=== PATIENT | female | born 1950 | race Caucasian/White ===

== ENCOUNTER 2017-08-15 07:03 | Outpatient (CLI) | payer BC | END 2017-08-15 07:04 | disposition home or self-care (01) | LOC: BICMAMMO 07:03 | PROVIDERS: ATTEND Family Medicine | DX: Z12.31 Encounter for screening mammogram for malignant neoplasm of breast (principal); R92.1 Mammographic calcification found on diagnostic imaging of breast; Z80.3 Family history of malignant neoplasm of breast | CPT/HCPCS: 77063; 77067; G0202 ==

== ENCOUNTER 2019-08-19 15:13 | Outpatient (CLI) | payer MEDICARE, BC ==
--- NOTE | 2019-08-19 16:01 | MMO ---
Bilateral MAMMO Bilat Screen [facility]. CLINICAL HISTORY: Patient is 68 years old and is seen for screening. The patient has the following family history of breast cancer: sister, at age 67, malignant (generic). The patient has no personal history of cancer. VIEWS: The views performed were: bilateral craniocaudal with tomosynthesis and bilateral mediolateral oblique with tomosynthesis. FILMS COMPARED: The present examination has been compared to prior imaging studies performed at [facility] on 01/12/2009 and 07/24/2011, and at [facility] on 07/03/2016 and 08/15/2017. This study has been interpreted with the assistance of computer-aided detection. MAMMOGRAM FINDINGS: There are scattered fibroglandular densities. Finding 1: There are stable benign appearing calcifications seen in both breasts. There are no suspicious masses, suspicious calcifications, or new areas of architectural distortion. IMPRESSION: FINDING 1: STABLE CALCIFICATIONS IN BOTH BREASTS ARE BENIGN. FINDING 2: FINDING IN THE LEFT BREAST IS BENIGN. EVIDENCE FOR STABLE LEFT BREAST FAT NECROSIS. A ROUTINE FOLLOW-UP MAMMOGRAM IN 1 YEAR IS RECOMMENDED. THE RESULTS OF THIS EXAM WERE SENT TO THE PATIENT. ACR BI-RADS Category 2 - Benign finding MAMMOGRAPHY NOTE: 1. A negative mammogram report should not delay a biopsy if a dominant of clinically suspicious mass is present. 2. Approximately 10% to 15% of breast cancers are not detected by mammography. 3. Adenosis and dense breasts may obscure an underlying neoplasm. Reported by: DEZ CESPEDES MD Electonically Signed: [id number]
== END 2019-08-19 15:14 | disposition home or self-care (01) ==
LOC: BICMAMMO 15:13
PROVIDERS: ATTEND Family Medicine
DX: Z12.31 Encounter for screening mammogram for malignant neoplasm of breast (principal); Z80.3 Family history of malignant neoplasm of breast; R92.1 Mammographic calcification found on diagnostic imaging of breast
CPT/HCPCS: 77063; 77067

== ENCOUNTER 2020-10-16 13:04 | Inpatient (IN) | payer MEDICARE ==
--- NOTE | 2020-10-16 13:30 | RAD ---
Frontal radiograph chest: 10/16/2020 COMPARISON: None HISTORY: Chest pain with nausea and shortness of breath FINDINGS: No pneumothorax or pleural fluid is seen. There is no focal consolidation or alveolar edema . Heart and mediastinal contours appear grossly unremarkable. IMPRESSION: No acute findings.
[2020-10-16] MEDS ORDERED: Diltiazem 125 MG/25 ML ONE (13:43)
[2020-10-16 14:06] LABS: #Basophils 0.1 thou/uL (0.0-0.2); #Eosinphils 0.2 thou/uL (0.0-0.7); #Lymphocytes 1.9 thou/uL (1.20-3.40); #Monocytes 0.7 thou/uL (0.11-0.59); #Neutrophils 5.4 thou/uL (1.40-6.50); %Basophils 1.4 % (0.0-1.0); %Eosinophils 2.4 % (0.0-10.0); %Lymphocytes 22.9 % (21.0-51.0); %Monocytes 7.9 % (0.0-10.0); %Neutrophils 65.4 % (42.0-75.0); Hemoglobin 14.5 g/dL (12.0-16.0); Mean Corpuscular HGB CONC 34.8 g/dL (32.0-36.0); Mean Corpuscular Hemoglobin 34.3 pg (27.0-31.0); Mean Corpuscular Volume 98.5 fL (78.0-98.0); Mean Platelet Volume 7.5 fL (7.4-10.4); Platelet Count 331 thou/uL (130-400); RBC Distribution Width 11.1 % (11.5-14.5); Red Blood Cell (RBC) Count 4.22 mill/uL (4.20-5.40); White Blood Cell (WBC) Count 8.3 thou/uL (4.8-10.8)
[2020-10-16 14:14] LABS: PTT 29.3 sec (22.9-36.1); Prothrombin Time 13.2 sec (12.0-14.7)
[2020-10-16 14:36] LABS: ALT (SGPT) 16 U/L (8-55); AST (SGOT) 16 U/L (5-34); Albumin 3.9 g/dL (3.4-4.8); Alkaline Phosphatase 67 U/L (40-110); Anion Gap 13 mmol/L (10-20); BUN (Urea Nitrogen) 14 mg/dL (9.8-20.1); Bilirubin, Total 0.6 mg/dL (0.2-1.2); Calc. Creatinine Clearance 0 mL/min (70-130); Calcium 8.5 mg/dL (7.8-10.44); Carbon Dioxide 22 mmol/L (23-31); Chloride 112 mmol/L (98-107); Globulin 2.6 g/dL (2.4-3.5); Glucose 171 mg/dL (80-115); Potassium 4.1 mmol/L (3.5-5.1); Protein, Total 6.5 g/dL (5.8-8.1); Sodium 143 mmol/L (136-145)
[2020-10-16] MEDS ORDERED: Iopamidol-370 76% 500 ML 1 ML ONE (15:06)
--- NOTE | 2020-10-16 15:47 | CT ---
CT ANGIOGRAM THORAX WITH IV CONTRAST AND 3-D RECONSTRUCTIONS CLINICAL INDICATION: Sudden onset of chest pain with exertional shortness of breath. COMPARISON: None FINDINGS: Pulmonary arteries: No filling defects are seen in the pulmonary arteries to suggest a pulmonary embo indira. Aorta: Minimal scattered vascular calcifications. Thoracic aorta is normal in caliber. Lungs: Dependent bibasilar atelectasis. No consolidation, pulmonary nodule, or pleural effusion is se en in the lungs bilaterally. Large airways are patent. Mediastinum: There is deviation of the trachea secondary to a left thyroid lesion/mass measuring 4.5 cm craniocaudal x4.9 cm transverse x3.4 cm AP. No enlarged lymph nodes are seen by CT size criteria. Minimal pericardial effusion is present. Osseous structures: There is fusion of the T6-T8 vertebral bodies. Multilevel degenerative changes ar e seen throughout the spine. There is a mild compression fracture seen involving the L1 vertebral body of indeterminate age. There is also suggestion of slight height loss along the superior endplate of the L2 vertebral body, but the L2 vertebral body is incompletely imaged on this exam. Chest wall: No abnormality visualized. Upper abdomen: There several hypodense lesion seen in the left hepatic lobe and in the dome of the li elena largest measuring 2.9 cm which demonstrate fluid attenuation on this nonenhanced CT exam and are likely related to hepatic cysts. End of the visualized upper abdomen demonstrates a normal CT cheng earance for phase of imaging. IMPRESSION: 1. Left thyroid mass. Ultrasound examination is recommended for further evaluation. 2. No CT evidence of a pulmonary embolus. 3. Hepatic cysts. 4. Minimal pericardial effusion. 5.Indeterminate age compression fracture L1 vertebral body with questionable compression fracture melinda ng the superior plate of L2 vertebral body, but the L2 vertebral bodies incompletely imaged.
[2020-10-16] MEDS ORDERED: Enoxaparin Sodium 80 MG/0.8 ML SYRINGE ONE (15:56)
[2020-10-16] MEDS ORDERED: Metoprolol Tartrate 25 MG TAB ONE (16:28)
[2020-10-16] MEDS ORDERED: Metoprolol Tartrate 5 MG/5 ML VIAL IVP PRN (16:59)
[2020-10-16] MEDS ORDERED: Aspirin 325 MG TAB PO SCH (17:00)
--- NOTE | 2020-10-16 17:04 | PDOC.HHP ---
Hospitalist HPI Chest pain History of Present Illness: Ms. Garzon is a 70-year-old female with past medical history of hypertension who presents to the emergency room for acute onset of chest pain. Patient reports that this morning she was at a store and walking around when she suddenly developed chest pain that she described as a 3 out of 10 substernal. She describes the pain as a pressure and felt as though her heart skipping. She denies any shortness of breath. Denies dizziness lightheadedness numbness weakness. Denies abdominal pain, melena or hematochezia. No history of atrial fibrillation, but does endorse a significant family history of A. fib in her sisters and mother. In emergency room initial vital signs 153/126, heart rate in the 180s, 22, 98.2, 97% on room air. Initial troponin 0.012, EKG showed atrial fibrillation with rapid ventricular rate. Patient initially requiring Cardizem drip to control her heart rate. Improved after 20 mg of IV diltiazem followed by 25 mg of oral metoprolol. Chest x-ray with no acute findings, CT PE protocol done which was negative for PE, but did show a incidental left thyroid mass and small pericardial effusion. WBC 8.3, H/H 14.5/41.5. BUN/CR 14/0.8. Sodium 143, potassium 4.1, glucose 171. BNP 442. Patient converted to normal sinus rhythm a few hours after pacing. She is now rate controlled. Allergies/Adverse Reactions: Allergy/AdvReac Type Severity Reaction Status Date / Time naproxen Allergy Intermediate Verified 10/16/20 17:05 Past History: Past medical history Hypertension Past surgical history None Family history Significant for A. fib, vulvar cancer in mother Social history Denies smoking, alcohol or drug use. Hospitalist HPI ROS Constitutional: denies: fever, chills, sweats, weakness, malaise, other Eyes: denies: pain, vision change, conjunctivae inflammation, eyelid inflammation, redness, other ENT: denies: ear pain, ear discharge, nose pain, nose discharge, nose congestion, mouth pain, mouth swelling, throat pain, throat swelling, other Respiratory: denies: cough, dry, shortness of breath, hemoptysis, SOB with excertion, pleuritic pain, sputum, wheezing, other Cardiovascular: reports: chest pain, palpitations. denies: orthopnea, paroxysmal noc. dyspnea, edema, light headedness, other Gastrointestinal: denies: nausea, vomiting, abdominal pain, diarrhea, constipation, melena, hematochezia, other Genitourinary: denies: dysuria, frequency, incontinence, hematuria, retention, other Musculoskeletal: denies: neck pain, shoulder pain, arm pain, back pain, hand pain, leg pain, foot pain, other Skin: denies: rash, lesions, brittany, bruising, other Neurological: denies: weakness, numbness, incoordination, change in speech, confusion, seizures, other Hospitalist Exam General Appearance: NAD, awake alert Eye: PERRL, anicteric sclera ENT: normocephalic atraumatic, no oropharyngeal lesions, moist mucosa Neck: supple, symmetric, no JVD, no thyromegaly, no lymphadenopathy, no carotid bruit Heart: RRR, no murmur, no gallops, no rubs, normal peripheral pulses Respiratory: CTAB, no wheezes, no rales, no ronchi, normal chest expansion, no tachypnea, normal percussion Gastrointestinal: soft, non-tender, non-distended, normal bowel sounds, no palpable masses, no hepatomegaly, no splenomegaly, no bruit Extremities: no cyanosis, no clubbing, no edema Skin: normal turgor, no lesions, no rashes Neurological: cranial nerve grossly intact, normal sensation to touch, no weakness, no focal deficits, no new deficit Musculoskeletal: normal tone, normal strength, no muscle wasting Psychiatric: normal affect, normal behavior, A&O x 3 Hospitalist Results Result Diagrams: 10/16/20 13:53 10/16/20 13:53 Lab results: Laboratory Last Values WBC 8.3 thou/uL (4.8-10.8) 10/16/20 13:53 RBC 4.22 mill/uL (4.20-5.40) 10/16/20 13:53 Hgb 14.5 g/dL (12.0-16.0) 10/16/20 13:53 Hct 41.5 % (36.0-47.0) 10/16/20 13:53 MCV 98.5 fL (78.0-98.0) H 10/16/20 13:53 MCH 34.3 pg (27.0-31.0) H 10/16/20 13:53 MCHC 34.8 g/dL (32.0-36.0) 10/16/20 13:53 RDW 11.1 % (11.5-14.5) L 10/16/20 13:53 Plt Count 331 thou/uL (130-400) 10/16/20 13:53 MPV 7.5 fL (7.4-10.4) 10/16/20 13:53 Neutrophils % 65.4 % (42.0-75.0) 10/16/20 13:53 Lymphocytes % 22.9 % (21.0-51.0) 10/16/20 13:53 Monocytes % 7.9 % (0.0-10.0) 10/16/20 13:53 Eosinophils % 2.4 % (0.0-10.0) 10/16/20 13:53 Basophils % 1.4 % (0.0-1.0) H 10/16/20 13:53 Neutrophils # 5.4 thou/uL (1.40-6.50) 10/16/20 13:53 Lymphocytes # 1.9 thou/uL (1.20-3.40) 10/16/20 13:53 Monocytes # 0.7 thou/uL (0.11-0.59) H 10/16/20 13:53 Eosinophils # 0.2 thou/uL (0.0-0.7) 10/16/20 13:53 Basophils # 0.1 thou/uL (0.0-0.2) 10/16/20 13:53 PT 13.2 sec (12.0-14.7) 10/16/20 13:54 INR 1.0 10/16/20 13:54 APTT 29.3 sec (22.9-36.1) 10/16/20 13:54 Sodium 143 mmol/L (136-145) 10/16/20 13:53 Potassium 4.1 mmol/L (3.5-5.1) 10/16/20 13:53 Chloride 112 mmol/L (98-107) H 10/16/20 13:53 Carbon Dioxide 22 mmol/L (23-31) L 10/16/20 13:53 Anion Gap 13 mmol/L (10-20) 10/16/20 13:53 BUN 14 mg/dL (9.8-20.1) 10/16/20 13:53 Creatinine 0.80 mg/dL (0.6-1.1) 10/16/20 13:53 Estimated GFR (MDRD) 71 10/16/20 13:53 Glucose 171 mg/dL (80-115) H 10/16/20 13:53 Calcium 8.5 mg/dL (7.8-10.44) 10/16/20 13:53 Magnesium 2.1 mg/dL (1.6-2.6) 10/16/20 13:53 Total Bilirubin 0.6 mg/dL (0.2-1.2) 10/16/20 13:53 AST 16 U/L (5-34) 10/16/20 13:53 ALT 16 U/L (8-55) 10/16/20 13:53 Alkaline Phosphatase 67 U/L (40-110) 10/16/20 13:53 Troponin I 0.012 ng/mL (< 0.028) 10/16/20 13:53 B-Natriuretic Peptide 442.4 pg/mL (0-100) H 10/16/20 13:54 Serum Total Protein 6.5 g/dL (5.8-8.1) 10/16/20 13:53 Albumin 3.9 g/dL (3.4-4.8) 10/16/20 13:53 Globulin 2.6 g/dL (2.4-3.5) 10/16/20 13:53 Albumin/Globulin Ratio 1.5 g/dL (1.2-2.2) 10/16/20 13:53 Hospitalist H&P A/P Plan: Atrial fibrillation 62-year-old female with possible history hypertension presents with acute onset of chest pain and atrial fibrillation. Patient initially with rapid ventricular rate in the 180s requiring diltiazem drip. She has now converted to normal sinus rhythm and is rate controlled. No history of atrial fibrillation, but the patient does report a significant family history of A. fib. Patient did receive 1 mg/kg of Lovenox in the emergency room. We will start metoprolol twice daily, continue anticoagulation and consult cardiology. Plan Anticoagulation with Lovenox TSH, magnesium Telemetry monitoring, echocardiogram Metoprolol 25 mg twice daily Cardiology consult Chest pain Patient with chest pain likely secondary to A. fib. Patient's chest pain is now resolved. Troponin 0.012, EKG with no ischemic changes. Will trend troponin and continue on cardiac monitoring. Plan Aspirin Trend troponin Telemetry monitoring Cardiology consult as above Pericardial Effusion CT scan showed very mild trace pericardial effusion. Patient HD stable. No concern for tamponade. May be 2/2 to a-fib vs mild infectious process. Patient does not appear to be fluid overloaded on exam. No JVD, no bradycardia or m uffled heart sounds. Will obtain echocardiogram and consult cardiology. Plan -Echocardiogram -Telemetry monitoring -Cardiology consult Hypertension Continue home medications once confirmed. Thyroid mass Patient with incidental finding of left thyroid mass on CT scan with recommended ultrasound follow-up. Given patient's new onset of A. fib will check TSH level. Informed patient of incidental finding and need for her to follow-up with her primary care provider as an outpatient for a thyroid ultrasound. Plan Outpatient thyroid ultrasound PCP follow-up DVT prophylaxisLovenox Full code Case discussed with attending physician Dr. Stephens.
[2020-10-16 17:47] LABS: Free T4 (Free Thyroxine) 0.92 ng/dL (0.70-1.48); Thyroid Stimulating Hormone 1.1952 uIU/mL (0.35-4.94)
[2020-10-16 17:51] LABS: Troponin I 0.158 ng/mL (< 0.028)
[2020-10-16 20:23] VITALS: BMI 26.3
[2020-10-16] MEDS: Metoprolol Tartrate 25 MG TAB PO SCH (21:05)
[2020-10-16] MEDS ORDERED: Enoxaparin Sodium 80 MG/0.8 ML SYRINGE SC SCH (23:59)
[2020-10-17 05:01] LABS: #Basophils 0.1 thou/uL (0.0-0.2); #Eosinphils 0.3 thou/uL (0.0-0.7); #Lymphocytes 2.5 thou/uL (1.20-3.40); #Monocytes 0.7 thou/uL (0.11-0.59); #Neutrophils 4.3 thou/uL (1.40-6.50); %Basophils 0.8 % (0.0-1.0); %Eosinophils 3.6 % (0.0-10.0); %Lymphocytes 31.9 % (21.0-51.0); %Monocytes 8.6 % (0.0-10.0); %Neutrophils 55.1 % (42.0-75.0); Mean Corpuscular HGB CONC 33.7 g/dL (32.0-36.0); Mean Corpuscular Hemoglobin 33.1 pg (27.0-31.0); Mean Corpuscular Volume 98.2 fL (78.0-98.0); Mean Platelet Volume 7.1 fL (7.4-10.4); Platelet Count 307 thou/uL (130-400); RBC Distribution Width 11.2 % (11.5-14.5); Red Blood Cell (RBC) Count 3.93 mill/uL (4.20-5.40); White Blood Cell (WBC) Count 7.8 thou/uL (4.8-10.8)
[2020-10-17 05:24] LABS: Anion Gap 10 mmol/L (10-20); BUN (Urea Nitrogen) 11 mg/dL (9.8-20.1); Calc. Creatinine Clearance 84 mL/min (70-130); Calcium 8.4 mg/dL (7.8-10.44); Carbon Dioxide 28 mmol/L (23-31); Cardiac Risk 4.1 (Less than 4.5); Chloride 107 mmol/L (98-107); Cholesterol 163 mg/dl (< 200 Desired); Glucose 97 mg/dL (80-115); HDL Cholesterol 40 mg/dL (>60 Neg Risk); LDL Cholesterol, Calculated 104 mg/dL; Potassium 4.1 mmol/L (3.5-5.1); Sodium 141 mmol/L (136-145); Triglycerides 95 mg/dL (Less than 150)
[2020-10-17 05:28] LABS: Troponin I 0.144 ng/mL (< 0.028)
[2020-10-17] MEDS ORDERED: Loperamide HCl 2 MG CAP PO PRN (07:46)
[2020-10-17] MEDS ORDERED: HYDROcodone/Acetaminophen 5/325 mg Tablet PO PRN (07:46)
[2020-10-17] MEDS ORDERED: Zolpidem Tartrate 5 MG TAB PO PRN (07:46)
[2020-10-17] MEDS ORDERED: Loratadine 10 MG TAB PO PRN (07:46)
[2020-10-17] MEDS ORDERED: Ondansetron ODT 4 MG TAB PO PRN (07:46)
[2020-10-17] MEDS ORDERED: hydrALAZINE 20 MG/ML VIAL SLOW IVP PRN (07:46)
[2020-10-17] MEDS ORDERED: GUAIFENESIN SF SOLN 200 MG/10 ML UDCUP PO PRN (07:46)
[2020-10-17] MEDS ORDERED: Sodium Chloride 0.65% Nasal 44 ML BOT EA NARE PRN (07:46)
[2020-10-17] MEDS ORDERED: Bisacodyl 5 MG TAB PO PRN (07:46)
[2020-10-17] MEDS ORDERED: Ondansetron PF 4 MG/2 ML Vial IVP PRN (07:46)
[2020-10-17] MEDS ORDERED: Cepastat Lozenges 1 LOZ PO PRN (07:46)
[2020-10-17] MEDS ORDERED: Senokot S 8.6-50 MG TAB PO PRN (07:46)
[2020-10-17 08:08] LABS: SARS-CoV-2 PCR by NAA Not Detected (NotDetected)
[2020-10-17] MEDS ORDERED: Calcium Carbonate 500 MG TAB PO SCH (09:00)
[2020-10-17] MEDS ORDERED: Ascorbic Acid 500 mg Chewable Tablet PO SCH (09:00)
[2020-10-17] MEDS ORDERED: Multivit, Therapeutic 1 TAB PO SCH (09:00)
[2020-10-17] MEDS ORDERED: Non-Formulary Item 1 EACH (Ascorbic Acid [Vitamin C] 1,000 MG Tablet) PO SCH (09:00)
[2020-10-17] MEDS ORDERED: Enoxaparin Sodium 80 MG/0.8 ML SYRINGE SC SCH (09:00)
[2020-10-17] MEDS ORDERED: Aspirin Chewable 81 MG TAB PO SCH (09:00)
[2020-10-17] MEDS ORDERED: Non-Formulary Item 1 EACH (Multivitamin [Multivitamin] 1 EACH Tablet) PO SCH (09:00)
[2020-10-17] MEDS ORDERED: Lisinopril 5 MG TAB PO SCH (09:00)
[2020-10-17] MEDS ORDERED: Iopamidol 370 76% 100 ML VIAL ONE (09:27)
[2020-10-17] MEDS: Metoprolol Tartrate 25 MG TAB PO SCH ×2 (10:32→20:06)
--- NOTE | 2020-10-17 10:37 | PDOC.HOSPP ---
- Subjective Encounter Date: 10/17/20 Encounter Time: 08:20 Subjective: Patient seen and examined bedside today, patient has no new complaint, no chest pain or shortness of breath, - Objective Vital Signs & Weight: Vital Signs (12 hours) Temp Pulse Resp BP Pulse Ox 10/17/20 08:00 97.7 F 62 17 142/79 H 98 10/17/20 07:32 99.2 F 62 17 142/79 H 98 10/17/20 04:00 66 18 125/73 97 10/17/20 01:00 98.1 F 67 18 124/70 97 Weight Weight 158 lb 3.2 oz Result Diagrams: 10/17/20 04:46 10/17/20 04:46 Radiology Reviewed by me: Yes EKG Reviewed by me: Yes Hospitalist ROS - Review of Systems Constitutional: denies: fever, chills, sweats, weakness, malaise, other ENT: denies: ear pain, ear discharge, nose pain, nose discharge, nose congestion, mouth pain, mouth swelling, throat pain, throat swelling, other Respiratory: denies: cough, dry, shortness of breath, hemoptysis, SOB with excertion, pleuritic pain, sputum, wheezing, other Cardiovascular: denies: chest pain, palpitations, orthopnea, paroxysmal noc. dyspnea, edema, light headedness, other Gastrointestinal: denies: nausea, vomiting, abdominal pain, diarrhea, constipation, melena, hematochezia, other Genitourinary: denies: dysuria, frequency, incontinence, hematuria, retention, other Musculoskeletal: denies: neck pain, shoulder pain, arm pain, back pain, hand pain, leg pain, foot pain, other - Medication Medications: Active Medications Generic Name Dose Route Start Last Admin Trade Name Freq PRN Reason Stop Dose Admin Metoprolol Tartrate 25 mg 10/16/20 21:00 10/16/20 21:05 Metoprolol Tartrate 25 Mg Tab PO 25 mg BID [facility] Hospitalist Exam Vitals: Vital Signs (12 hours) Temp Pulse Resp BP Pulse Ox 10/17/20 08:00 97.7 F 62 17 142/79 H 98 10/17/20 07:32 99.2 F 62 17 142/79 H 98 10/17/20 04:00 66 18 125/73 97 03/02/21 01:00 98.1 F 67 18 124/70 97 Weight Weight 158 lb 3.2 oz General Appearance: NAD, awake alert Eye: PERRL, anicteric sclera ENT: normocephalic atraumatic, no oropharyngeal lesions Neck: supple, symmetric, no JVD, no thyromegaly Heart: no murmur, no gallops, no rubs Respiratory: no wheezes, no rales, no ronchi Gastrointestinal: soft, non-tender, non-distended, normal bowel sounds Extremities: no clubbing, no edema Skin: normal turgor, no lesions Neurological: no focal deficits Musculoskeletal: normal tone, normal strength Psychiatric: normal affect, normal behavior Hosp A/P (1) Atrial fibrillation with RVR Code(s): I48.91 - UNSPECIFIED ATRIAL FIBRILLATION Status: Acute (2) Chest pain Code(s): R07.9 - CHEST PAIN, UNSPECIFIED Status: Acute (3) Type 2 myocardial infarction Code(s): I21.A1 - MYOCARDIAL INFARCTION TYPE 2 Status: Acute (4) Thyroid mass Code(s): E07.9 - DISORDER OF THYROID, UNSPECIFIED Status: Acute (5) Hypertension Code(s): I10 - ESSENTIAL (PRIMARY) HYPERTENSION Status: Chronic Qualifiers: Hypertension type: essential hypertension Qualified Code(s): I10 - Essential (primary) hypertension - Plan old records reviewed/req Echocardiography done and result is pending Cardiology consulted Continue Lovenox, long-term anticoagulation will defer to cardiology Continue metoprolol Further investigation will defer to cardiology We will obtain ultrasound thyroid We will monitor telemetry floor, if remains stable then will consider discharge tomorrow if no further plan for any investigation
[2020-10-17] MEDS ORDERED: Lidocaine 1% (PF) 30 ML VIAL ONE (13:47)
--- NOTE | 2020-10-17 13:55 | ULT ---
THYROID ULTRASOUND: HISTORY: Thyroid mass. CORRELATION: CT angiogram of the chest 10/17/2019. FINDINGS: Thyroid isthmus: 0.22 cm. Right thyroid lobe: 1.2 x 2.8 x 1.2 cm. Left thyroid lobe: 1.9 x 5.5 x 3.8 cm. Thyroid nodules: Right thyroid lobe: Solid heterogeneous nodule in the upper pole of the right thyroid lobe measures 1 .1 x 1.1 x 0.9 cm. Left thyroid lobe: Solid heterogeneous nodule in the upper pole measures 1.0 x 1.0 x 1.1 cm. Solid heterogeneous nodule in the lower pole of the left thyroid lobe measures 4.0 x 4.1 x 3.1 cm. IMPRESSION: Multiple solid nodules in the thyroid gland. TIRADS score TR mildly suspicious. Fine-needle aspirati on of the largest solid mass in the lower pole the left thyroid lobe is recommended. Remaining nodules can be followed up in one year. Transcribed Date/Time: 10/17/2020 2:06 PM
[2020-10-17] MEDS ORDERED: Sodium Chloride 0.9% 1,000 ML IV SCH ×2 (14:00→14:45)
[2020-10-17] MEDS ORDERED: Heparin 10,000 UNITS/ 10 ML VIAL ONE (14:11)
[2020-10-17] MEDS ORDERED: Nitroglycerin 100MG/250ML BOT 250 ML ONE (14:11)
[2020-10-17] MEDS ORDERED: Verapamil 5 MG/2 ML VIAL ONE (14:11)
[2020-10-17] MEDS ORDERED: Midazolam HCl 2 mg/2 ml Vial ONE (14:24)
[2020-10-17] MEDS ORDERED: Fentanyl 100 MCG/2 ML VIAL ONE (14:24)
--- NOTE | 2020-10-17 14:38 | CON ---
DATE OF CONSULTATION: REASON FOR CONSULTATION: Abnormal enzymes and atrial fibrillation. HISTORY OF PRESENT ILLNESS: Ms. Garzon is a pleasant 70-year-old woman with no significant past medical history except for hypertension, who recently presented with chest pain, pressure, and shortness of breath. She states she had a normal state of health [facility] was [facility] [employer]. She developed acute onset shortness of breath and chest pain. She states she felt her pulse that was tachycardic. She presented to the emergency room and was found to be in atrial fibrillation with RVR. She then converted back to sinus rhythm. Her EKG did show deep inverted T waves suggesting ischemia. Troponin was also mildly elevated at 0.158. She is currently pain free. PAST MEDICAL HISTORY: Hypertension. ALLERGIES: NAPROXEN. PAST SURGICAL HISTORY: None. SOCIAL HISTORY: No tobacco or alcohol use. REVIEW OF SYSTEMS: A 10-point review of systems is reviewed and is as above, otherwise negative. PHYSICAL EXAMINATION: GENERAL: Patient is a pleasant woman, who is in no acute distress. The patient appears their stated age. VITAL SIGNS: Blood pressure 141/78, pulse 60, temperature 98.2. NEUROLOGIC: The patient is alert and oriented x3 with no focal neurologic deficits. HEENT: Sclerae without icterus. Mouth has moist mucous membranes with normal pallor. NECK: No JVD. Carotid upstroke brisk. No bruits bilaterally. LUNGS: Clear to auscultation with unlabored respirations. BACK: No scoliosis or kyphosis. CARDIAC: Regular rate and rhythm with normal S1 and S2. No S3 or S4 noted. No significant rubs, murmurs, thrills, or gallops noted throughout the precordium. PMI is not displaced. There is no parasternal heave. ABDOMEN: Soft, nontender, nondistended. No peritoneal signs present. No hepatosplenomegaly. No abnormal striae. EXTREMITIES: 2+ femoral and 2+ dorsalis pedis pulses. No cyanosis, clubbing, or edema. SKIN: No gross abnormalities. PERTINENT LABORATORY DATA: Creatinine 0.73. Peak troponin 0.158. BNP of 442. Thyroid ultrasound suggesting multiple solid nodules in thyroid gland, recommending fine-needle aspiration. IMPRESSION: 1. Acute onset chest pain. 2. Shortness of breath. 3. Atrial fibrillation. 4. Abnormal EKG. RECOMMENDATIONS: Ms. Sullivans EKG does suggest inverted T waves suggesting unstable angina. I am unsure whether she developed chest pain and pressure, then developed atrial fibrillation or vice versa. Her troponin was also mildly elevated. Discussed medical therapy versus coronary angiography. I would recommend coronary angiography given the above. Based on the above, she agreed. I discussed the procedure in full detail with Ms. Garzon. The risks of the procedure were also discussed. The risks of the procedure include but are not limited to the following: , stroke, GA, need for emergency surgery, loss of limb, bleeding, and infection, as well as a reaction to the dye causing kidney failure and needing long-term dialysis. I also discussed the risks of PCI to include all of the above including coronary dissection and perforation in addition to acute stent thrombosis and restenosis. All questions were answered. Given the above, the patient agreed to proceed with above procedure. I also discussed drug-coated versus nondrug-coated stent placement. There were no contraindications. We will proceed if needed. Job ID: [id number]
[2020-10-17] MEDS ORDERED: Sodium Chloride 0.9% 200 ML IV PRN (14:42)
[2020-10-17] MEDS ORDERED: Acetaminophen/Codeine 30-300mg Tablet PO PRN ×2 (14:42)
[2020-10-17] MEDS ORDERED: Nitroglycerin 0.4 MG TAB (25 Tab Bottle) SL PRN (14:42)
[2020-10-17] MEDS ORDERED: Dronedarone HCl 400 MG TAB PO SCH (17:00)
--- NOTE | 2020-10-17 17:04 | PRG ---
DATE OF SERVICE: 10/17/2020 Ms. Garzon underwent coronary angiography. She was not found to have significant coronary artery disease. She was found to have apical hypertrophy both by echo and by catheterization. At this point, would recommend anticoagulation therapy for a recent episode of atrial fibrillation. Also recommend Multaq. We will also recommend a 3-week event recorder to assess for any significant dysrhythmias including ventricular tachycardia. Workup for apical hypertrophy is the same is for hypertrophic cardiomyopathy, although the risk of sudden cardiac is much lower. The patient has no history of syncope, presyncope, and no previous dysrhythmia, and no family history of sudden cardiac . After bed rest, it will be okay from my standpoint to discharge home with close outpatient followup. Job ID: [id number]
--- NOTE | 2020-10-17 17:57 | PDOC.DS.DS ---
Provider Date of Admission: 10/16/20 16:26 Date of Discharge: 10/17/20 Admitting Provider: Serge Stephens MD Consultations: Cardiology Primary Care Physician: Angelo Martinez MD Course Hospital Course: Ms. Garzon is a 70-year-old female with past medical history of hypertension who presents to the emergency room for acute onset of chest pain. Patient reports that this morning she was at a store and walking around when she suddenly developed chest pain that she described as a 3 out of 10 substernal. She describes the pain as a pressure and felt as though her heart skipping. She denies any shortness of breath. Denies dizziness lightheadedness numbness weakness. Denies abdominal pain, melena or hematochezia. No history of atrial fibrillation, but does endorse a significant family history of A. fib in her sisters and mother. In emergency room initial vital signs 153/126, heart rate in the 180s, 22, 98.2, 97% on room air. Initial troponin 0.012, EKG showed atrial fibrillation with ra pid ventricular rate. Patient initially requiring Cardizem drip to control her heart rate. Improved after 20 mg of IV diltiazem followed by 25 mg of oral metoprolol. Chest x-ray with no acute findings, CT PE protocol done which was negative for PE, but did show a incidental left thyroid mass and small pericardial effusion. WBC 8.3, H/H 14.5/41.5. BUN/CR 14/0.8. Sodium 143, potassium 4.1, glucose 171. BNP 442. Patient converted to normal sinus rhythm a few hours after pacing. She is now rate controlled. echo done, showed apical hypertrophy, cardiac cath showed normal coronary, elliquis started and multaq started, pt will follow up with ENT for thyroid mass. she will follow up with cardiology. pt wanted to go home Resuscitation Status: 10/16/20 16:56 Resuscitation Status Routine Co-Sign Provider: Resuscitation Status: FULL: Full Resuscitation Lab Results: 10/17/20 04:46 10/17/20 04:46 Abnormal Lab Results - Last 48 hrs 10/16/20 13:53: Chloride 112 H, Carbon Dioxide 22 L 10/16/20 13:53: MCV 98.5 H, MCH 34.3 H, RDW 11.1 L, Basophils % 1.4 H, Monocytes # 0.7 H 10/16/20 13:54: B-Natriuretic Peptide 442.4 H 10/16/20 16:55: Troponin I 0.158 H 10/17/20 04:46: RBC 3.93 L, MCV 98.2 H, MCH 33.1 H, RDW 11.2 L, MPV 7.1 L, Monocytes # 0.7 H 10/17/20 04:46: Troponin I 0.144 H Vitals: Vital Signs (12 hours) Temp Pulse Resp BP Pulse Ox 10/17/20 15:13 97.6 F 66 18 150/79 H 95 10/17/20 11:29 98.2 F 60 18 141/78 H 94 L 10/17/20 10:31 62 10/17/20 08:00 97.7 F 62 17 142/79 H 98 10/17/20 07:32 99.2 F 62 17 142/79 H 98 Weight Weight 158 lb 3.2 oz Physical Exam: The patient was seen and examined on the day of discharge. General Appearance: NAD, awake alert Eye: PERRL, anicteric sclera ENT: normocephalic atraumatic, no oropharyngeal lesions Neck: supple, symmetric, no JVD Respiratory: CTAB, no wheezes, no rales, no ronchi Cardiovascular: RRR, no murmur, no gallops, normal peripheral pulses Gastrointestinal: soft, non-tender, non-distended, normal bowel sounds Extremities: no cyanosis, no clubbing, no edema Skin: normal turgor, no lesions Neurological: cranial nerve grossly intact Musculoskeletal: normal tone, normal strength PSYCH: normal affect, normal behavior Problem (1) Atrial fibrillation with RVR Code(s): I48.91 - UNSPECIFIED ATRIAL FIBRILLATION Status: Acute (2) Chest pain Code(s): R07.9 - CHEST PAIN, UNSPECIFIED Status: Acute (3) Type 2 myocardial infarction Code(s): I21.A1 - MYOCARDIAL INFARCTION TYPE 2 Status: Acute (4) Thyroid mass Code(s): E07.9 - DISORDER OF THYROID, UNSPECIFIED Status: Acute (5) Hypertension Code(s): I10 - ESSENTIAL (PRIMARY) HYPERTENSION Status: Chronic Qualifiers: Hypertension type: essential hypertension Qualified Code(s): I10 - Essential (primary) hypertension Plan Prescriptions: Apixaban [Eliquis] 5 mg PO BID #30 tab Metoprolol Tartrate [Lopressor] 25 mg PO BID #60 tab Dronedarone HCl [Multaq] 400 mg PO BID-WM #60 tab Home Medications: Medication Instructions Recorded Confirmed Type Ascorbic Acid [Vitamin C] 1,000 mg PO DAILY 10/16/20 10/16/20 History Calcium Carbonate [Calcium] 500 mg PO DAILY 10/16/20 10/16/20 History Cetirizine HCl 5 mg PO DAILY 10/16/20 10/16/20 History Lisinopril 5 mg PO DAILY 10/16/20 10/16/20 History Multivitamin 1 tab PO DAILY 10/16/20 10/16/20 History Apixaban [Eliquis] 5 mg PO BID #30 tab 10/17/20 Rx Dronedarone HCl [Multaq] 400 mg PO BID-WM #60 tab 10/17/20 Rx Metoprolol Tartrate [Lopressor] 25 mg PO BID #60 tab 10/17/20 Rx Allergies: naproxen Allergy (Intermediate, Verified 10/16/20 20:37) low blood pressure Activity:: Activity as Tolerated Nourishment:: Heart Healthy Diet Therapies:: Not Applicable Equipment/Supplies:: Not Applicable IV Therapy:: Not Applicable Referrals: Gautam Santana MD [Active] - Angelo Martinez MD [Primary Care Provider] - Disposition: HOME Quality CORE MEASURES:: N/A
[2020-10-17 21:21] VITALS: BP 159/79; TEMP 98.4
[2020-10-18] MEDS ORDERED: Apixaban 5 MG TAB PO SCH (09:00)
== END 2020-10-17 20:25 | disposition home or self-care (01) | DRG 281 ==
LOC: ERS 13:04 → ERHOLD 16:26 → 2SE 20:19
PROVIDERS: ADMIT Internal Medicine; ATTEND Internal Medicine
PROC: 4A023N7 Measurement of Cardiac Sampling and Pressure, Left Heart, Percutaneous Approach (ICD-10-PCS; principal; 2020-10-17)
PROC: B2111ZZ Fluoroscopy of Multiple Coronary Arteries using Low Osmolar Contrast (ICD-10-PCS; 2020-10-17)
DX: I48.91 Unspecified atrial fibrillation (principal); I21.A1 Myocardial infarction type 2; I31.3 Pericardial effusion (noninflammatory); Z20.822 Contact with and (suspected) exposure to COVID-19; I10 Essential (primary) hypertension; E07.89 Other specified disorders of thyroid; I42.2 Other hypertrophic cardiomyopathy; Z88.8 Allergy status to other drugs, medicaments and biological substances; Z82.49 Family history of ischemic heart disease and other diseases of the circulatory system; Z80.49 Family history of malignant neoplasm of other genital organs
CPT/HCPCS: 36415; 71045; 71275; 76536; 80048; 80053; 80061; 83735; 83880; 84439; 84443; 84484; 85025; 85610; 85730; 87635; 93005; 93306; 93458; 94760; 96365; 96366; 96372; 96376; 99152; J1644; J1650; J2001; J2250; J3010; Q9967; U0003; U0005

== ENCOUNTER 2022-07-25 14:57 | Outpatient (CLI) | payer MEDICARE, BC | END 2022-07-25 14:58 | disposition home or self-care (01) | LOC: BICMAMMO 14:57 | PROVIDERS: ATTEND Family Medicine | DX: Z12.31 Encounter for screening mammogram for malignant neoplasm of breast (principal); Z80.3 Family history of malignant neoplasm of breast | CPT/HCPCS: 77063; 77067 ==

== ENCOUNTER 2023-09-22 15:06 | Outpatient (CLI) | payer MEDICARE, BC | END 2023-09-22 15:07 | disposition home or self-care (01) | LOC: BICMAMMO 15:06 | PROVIDERS: ATTEND Internal Medicine | DX: Z12.31 Encounter for screening mammogram for malignant neoplasm of breast (principal); Z80.3 Family history of malignant neoplasm of breast | CPT/HCPCS: 77063; 77067 ==

== ENCOUNTER 2024-06-11 13:32 | Outpatient (CLI) | payer MEDICARE, BC ==
[2024-06-11 14:15] LABS: #Basophils 0.07 10x3/uL (0.0-0.2); %Eosinophils 3.7 % (0.0-10.0); %Monocytes 8.8 % (0.0-10.0); %Neutrophils 55.4 % (42.0-75.0); Hematocrit 39.9 % (36.0-47.0); Hemoglobin 13.3 g/dL (12.0-16.0); Mean Corpuscular HGB CONC 33.3 g/dL (32.0-36.0); Mean Corpuscular Hemoglobin 33.1 pg (27.0-31.0); Mean Corpuscular Volume 99.3 fL (78.0-98.0); Mean Platelet Volume 9.3 fL (7.4-10.4); Platelet Count 341 10x3/uL (130-400); RBC Distribution Width 12.2 % (11.5-14.5); Red Blood Cell (RBC) Count 4.02 mill/uL (4.20-5.40)
[2024-06-11 14:33] LABS: ALT (SGPT) 13 U/L (8-55); AST (SGOT) 17 U/L (5-34); Albumin 3.7 g/dL (3.4-4.8); Alkaline Phosphatase 54 U/L (40-110); Anion Gap 11 mmol/L (10-20); BUN (Urea Nitrogen) 15 mg/dL (9.8-20.1); Bilirubin, Total 0.8 mg/dL (0.2-1.2); Calc. Creatinine Clearance 0 mL/min (70-130); Calcium 9.1 mg/dL (7.8-10.44); Carbon Dioxide 26 mmol/L (23-31); Chloride 108 mmol/L (98-107); Estimated GFR 54; Globulin 2.8 g/dL (2.4-3.5); Glucose 90 mg/dL (83-110); Potassium 4.6 mmol/L (3.5-5.1); Protein, Total 6.5 g/dL (5.8-8.1); Sodium 140 mmol/L (136-145)
== END 2024-06-11 13:33 | disposition home or self-care (01) ==
LOC: LABBT 13:32
PROVIDERS: ATTEND Internal Medicine Cardiovascular Disease
DX: Z01.812 Encounter for preprocedural laboratory examination (principal); Z95.818 Presence of other cardiac implants and grafts
CPT/HCPCS: 80053; 85025

== ENCOUNTER 2024-06-18 06:13 | Day surgery (SDC) | payer MEDICARE, BC ==
[2024-06-11 13:49] VITALS: BMI 26.4
[2024-06-18] MEDS ORDERED: Lidocaine 1% w/Epinephrine 1:100K 20 ML VIAL ONE (06:38)
== END 2024-06-18 08:10 | disposition home or self-care (01) ==
LOC: CCL 06:13
PROVIDERS: ATTEND Internal Medicine Cardiovascular Disease
PROC: 0JPT02Z Removal of Monitoring Device from Trunk Subcutaneous Tissue and Fascia, Open Approach (ICD-10-PCS; principal; 2024-06-18)
PROC: 0JH602Z Insertion of Monitoring Device into Chest Subcutaneous Tissue and Fascia, Open Approach (ICD-10-PCS; 2024-06-18)
DX: I47.20 Ventricular tachycardia, unspecified (principal); I47.10 Supraventricular tachycardia, unspecified; I11.9 Hypertensive heart disease without heart failure; I21.4 Non-ST elevation (NSTEMI) myocardial infarction; Z78.0 Asymptomatic menopausal state; Z95.818 Presence of other cardiac implants and grafts; Z88.6 Allergy status to analgesic agent
CPT/HCPCS: 33285; 33286